=== PATIENT | male | born 1945 | race Caucasian/White ===

== ENCOUNTER → 2023-05-21 09:27 | Outpatient (CLI) | payer MEDICARE, SELFPAY ==
[2023-05-21 10:17] LABS: Appearance Urine UA CLEAR; Bilirubin Urine UA NEGATIVE (NEGATIVE); Color Urine UA YELLOW; Glucose Urine UA NEGATIVE (Negative); Ketones Urine UA NEGATIVE (NEGATIVE); Leukocyte Esterase Urine UA NEGATIVE (NEGATIVE); Nitrite Urine UA NEGATIVE (Negative); Occult Blood Urine UA TRACE-INTACT (Negative); Protein Urine UA NEGATIVE (Negative); Specific Gravity Urine UA 1.025 (1.000-1.035); Urobilinogen Urine UA 0.2 E.U./dL (0.2); pH Urine UA 5.5 (4.5-8.0)
[2023-05-21 10:24] LABS: Add Manual Diff / Slide Review NO; Basophils Absolute Auto 0 /uL (0-100); Basophils Percent Auto 0.7 % (0-2); Eosinophils Absolute Auto 200 /uL (0-450); Eosinophils Percent Auto 2.9 % (2-4); Hematocrit 42.3 % (41-53); Hemoglobin 14.2 g/dL (13.5-17.5); Lymphocytes Absolute Auto 1400 /uL (1100-4500); Lymphocytes Percent Auto 22.2 % (25-40); Mean Corpuscular HGB Conc 33.5 % (30-36); Mean Corpuscular Hemoglobin 29.6 PG (26-34); Mean Corpuscular Volume 88.3 fL (80-100); Monocytes Absolute Auto 600 /uL (0-900); Monocytes Percent Auto 9.7 % (3-14); Neutrophils Absolute Auto 4200 /uL (1500-7000); Neutrophils Percent Auto 64.5 % (50-75); Platelet Count 213 X10^3/uL (150-400); Red Blood Cell Count 4.79 X10^6/uL (4.5-5.9); Red Cell Distribution Width 13.5 % (11.6-14.8); White Blood Cell Count 6.5 X10^3/uL (4.5-11.0)
[2023-05-21 10:26] LABS: Bacteria Urine None Seen; Culture Indicated Urine Cult Not Indicated; RBC Urine 0-1/HPF (0-5/HPF); Squamous Epithelial Cell Urine None Seen (0-5/HPF); WBC Urine None Seen (0-5/HPF)
[2023-05-21 10:27] LABS: Alanine Aminotransferase 32 IU/L (<50); Albumin Globulin Ratio 1.4 (1.0-2.8); Alkaline Phosphatase 52 U/L (38-126); Aspartate Aminotransferase 27 IU/L (17-59); BUN Creatinine Ratio 19.8 (6-22); Blood Urea Nitrogen 18 mg/dL (9-20); Calcium 9.7 mg/dL (8.4-10.2); Carbon Dioxide 28 mmol/L (22-32); Chloride 105 mmol/L (98-107); Cholesterol 147 mg/dL (140-199); Creatine Kinase 109 U/L (55-170); Estimated Glomerular Filt Rate > 60 mL/min (>60); Globulin 2.8 g/dL (1.7-4.1); Glucose 112 mg/dL (80-110); HDL Cholesterol 43 mg/dL (40-60); HEMOLYSIS < 15 (0-50); LDL Cholesterol Calculated 85 mg/dL (<100); Magnesium 1.8 mg/dL (1.6-2.3); Phosphorous 3.3 mg/dL (2.3-3.7); Potassium 4.3 mmol/L (3.4-5.1); Sodium 139 mmol/L (137-145); Total Protein 6.8 g/dL (6.3-8.2); Triglycerides 97 mg/dL (35-150)
[2023-05-21 10:41] LABS: Creatinine Urine Random 133.5 mg/dL
[2023-05-21 10:46] LABS: Microalbumi Creatinin Ratio Ur 29.2 ug/mg CR (<30); Microalbumin Urine Random 3.9 mg/dL (0-1.6)
[2023-05-21 10:58] LABS: TSH w/ Reflex to FT4 1.13 uIU/mL (0.47-4.68)
[2023-05-21 12:14] LABS: Hep C Virus Ab w/Reflex Quant NEGATIVE s/c (NEGATIVE)
== END ==
PROVIDERS: PCP Family Medicine; Referring Provider Family Medicine; Visit Provider Family Medicine
DX: Z11.59 Encounter for screening for other viral diseases; I10 Essential (primary) hypertension; G47.62 Sleep related leg cramps; E78.5 Hyperlipidemia, unspecified
CPT/HCPCS: 36415; 80053; 80061; 81001; 82043; 82550; 82570; 83735; 84100; 84443; 85025; 86803

== ENCOUNTER → 2024-05-31 08:38 | Outpatient (CLI) | payer MEDICARE, SELFPAY ==
[2024-05-31 09:33] LABS: Add Manual Diff / Slide Review NO; Basophils Absolute Auto 100 /uL (0-100); Eosinophils Absolute Auto 200 /uL (0-450); Eosinophils Percent Auto 3.1 % (2-4); Hematocrit 43.2 % (41-53); Hemoglobin 14.5 g/dL (13.5-17.5); Lymphocytes Absolute Auto 1400 /uL (1100-4500); Lymphocytes Percent Auto 21.1 % (25-40); Mean Corpuscular HGB Conc 33.6 % (30-36); Mean Corpuscular Volume 89.3 fL (80-100); Monocytes Absolute Auto 600 /uL (0-900); Monocytes Percent Auto 8.6 % (3-14); Neutrophils Absolute Auto 4300 /uL (1500-7000); Neutrophils Percent Auto 66.2 % (50-75); Platelet Count 187 X10^3/uL (150-400); Red Blood Cell Count 4.84 X10^6/uL (4.5-5.9); Red Cell Distribution Width 13.4 % (11.6-14.8); White Blood Cell Count 6.5 X10^3/uL (4.5-11.0)
[2024-05-31 09:51] LABS: Alanine Aminotransferase 27 IU/L (<50); Albumin 3.9 g/dL (3.5-5.0); Albumin Globulin Ratio 1.6 (1.0-2.8); Alkaline Phosphatase 58 U/L (38-126); Aspartate Aminotransferase 28 IU/L (17-59); Bilirubin Total 1.1 mg/dL (0.2-1.3); Blood Urea Nitrogen 19 mg/dL (9-20); Calcium 9.1 mg/dL (8.4-10.2); Carbon Dioxide 26 mmol/L (22-32); Chloride 107 mmol/L (98-107); Cholesterol 165 mg/dL (140-199); Estimated Glomerular Filt Rate > 60 mL/min (>60); Globulin 2.4 g/dL (1.7-4.1); Glucose 107 mg/dL (80-110); HDL Cholesterol 47 mg/dL (40-60); HEMOLYSIS < 15 (0-50); LDL Cholesterol Calculated 101 mg/dL (<100); Potassium 4.3 mmol/L (3.4-5.1); Sodium 139 mmol/L (137-145); Total Protein 6.3 g/dL (6.3-8.2); Triglycerides 86 mg/dL (35-150)
[2024-05-31 10:08] LABS: Vitamin D 25 Hydroxy (D3) 40.9 ng/mL (30.0-100.0)
== END ==
PROVIDERS: PCP Family Medicine; Referring Provider Family Medicine; Visit Provider Family Medicine
DX: E78.5 Hyperlipidemia, unspecified (principal); Z12.5 Encounter for screening for malignant neoplasm of prostate; Z79.899 Other long term (current) drug therapy; I10 Essential (primary) hypertension; I25.10 Atherosclerotic heart disease of native coronary artery without angina pectoris; Z13.21 Encounter for screening for nutritional disorder
CPT/HCPCS: 36415; 80053; 80061; 82306; 85025; G0103

== ENCOUNTER → 2024-06-09 14:22 | Outpatient (CLI) | payer MEDICARE, SELFPAY ==
[2024-06-09 15:11] LABS: Influenza A - CEPHEID Flu A NEGATIVE (NEGATIVE); Influenza B - CEPHEID Flu B NEGATIVE (NEGATIVE); Respiratory Syncytial Virus Negative (Negative)
[2024-06-09 16:14] LABS: COVID-19 CEPHEID 4-PLEX PCR Negative (Negative)
== END ==
PROVIDERS: PCP Family Medicine; Visit Provider Student in an Organized Health Care Education/Training Program
DX: R05.1 Acute cough (principal)
CPT/HCPCS: 0241U

== ENCOUNTER → 2024-07-22 15:47 | Outpatient (CLI) | payer MEDICARE, SELFPAY ==
--- NOTE | 2024-07-22 15:48 | DI.RAD.S_ITS ---
PROCEDURE: XR CHEST 2V INDICATIONS: cough TECHNIQUE: 2 views of the chest were acquired. COMPARISON: None. FINDINGS: Surgical changes and devices: None. Lungs and pleura: Lungs are clear. No pleural effusions or pneumothorax. Mediastinum: Mediastinal contours are normal. Heart size is normal. Bones and chest wall: No suspicious bony abnormalities. Soft tissues appear unremarkable. IMPRESSION: No acute cardiopulmonary pathology. Dictated by: Gibson Tobias M.D. on 07/22/2024 at 17:48 Approved by: Gibson Tobias M.D. on 07/22/2024 at 17:48
== END ==
PROVIDERS: PCP Family Medicine; Referring Provider Family Medicine; Visit Provider Family Medicine
DX: R05.9 Cough, unspecified (principal)
CPT/HCPCS: 71046

== ENCOUNTER → 2024-09-19 07:26 | Outpatient (CLI) | payer MEDICARE, SELFPAY ==
[2024-09-19 08:50] LABS: Prostate Specific Antigen 4.59 ng/mL (0.10-4.00)
[2024-09-19 09:40] LABS: Microalbumin Urine Random 6.2 mg/dL (0-1.6)
== END ==
PROVIDERS: PCP Family Medicine; Referring Provider Family Medicine; Visit Provider Family Medicine
DX: R97.20 Elevated prostate specific antigen [PSA] (principal); I10 Essential (primary) hypertension
CPT/HCPCS: 36415; 82043; 82570; 84153

== ENCOUNTER → 2025-01-31 08:47 | Outpatient (CLI) | payer MEDICARE, SELFPAY ==
[2025-01-31 10:23] LABS: Cholesterol 142 mg/dL (140-199); HDL Cholesterol 39 mg/dL (40-60); Triglycerides 84 mg/dL (35-150)
== END ==
PROVIDERS: PCP Family Medicine; Referring Provider Family Medicine; Visit Provider Family Medicine
DX: E78.5 Hyperlipidemia, unspecified (principal)
CPT/HCPCS: 36415; 80061

== ENCOUNTER 2025-03-17 17:19 | Emergency (ER) | payer MEDICARE, SELFPAY ==
[2025-03-17 17:20] VITALS: BP 147/68; PULSE 56; RESP 16; TEMP 36.8; O2SAT 96; BMI 28.5
--- NOTE | 2025-03-17 17:27 | DI.RAD.S_ITS ---
PROCEDURE: XR RIBS LT MIN 3V W CXR1V INDICATIONS: fall TECHNIQUE: To views of the ribs were acquired, along with a single view chest. COMPARISON: None. FINDINGS: Surgical changes and devices: None. Bones and chest wall: No fractures or dislocations. No suspicious bony lesions. Overlying soft tissues appear unremarkable. Lungs and pleura: No pleural effusions or pneumothorax. Lungs appear clear. Mediastinum: Mediastinal contours appear normal. Heart size is enlarged. IMPRESSION: No displaced left rib fractures or pneumothorax. Dictated by: Gibson Tobias M.D. on 03/17/2025 at 18:24 Approved by: Gibson Tobias M.D. on 03/17/2025 at 18:24
--- NOTE | 2025-03-17 17:47 | ED.FALL ---
HPI - Fall <Joselin Lim PA-C - Last Filed: 03/17/25 19:13> General Chief Complaint: Fall Stated Complaint: Fall, pain in ribs Time Seen by Provider: 03/17/25 17:25 History of Present Illness HPI Narrative: Mr. Collazo is a very pleasant 80-year-old male with a past medical history of CAD, HTN, HLD, not on blood thinners who presents to emergency department for left-sided rib pain after fall that occurred around noon. Patient states he was working on his deck when a backboard gave out causing him to fall off the deck onto the hard ground. He landed on the left side of his ribcage. States that his head may have hit the ground but he did not have any head pain at the time of the fall or now. No loss of consciousness or blood thinners. Patient states that he had some immediate pain on the lateral left ribcage that extends onto the left chest wall as well, he hoped that it would go away on its own however after over 5 hours the pain persisted so he came to the ER. He is taken Tylenol and he does not want anything else for pain. Pain is exacerbated by taking deep breath. Pain is alleviated by sitting still. Denies any headache, neck pain, back pain, abdominal pain, upper extremity pain or lower extremity pain. No open wounds. Related Data Home Medications ?Medication ?Instructions ?Recorded ?Confirmed cholecalciferol (vitamin D3) 50 50 mcg PO DAILY 12/29/23 03/15/25 mcg (2,000 unit) capsule Previous Rx's ?Medication ?Instructions ?Recorded sildenafil 50 mg tablet 50 mg PO DAILY PRN sexual activity 09/19/23 #30 tabs amlodipine 5 mg tablet 5 mg PO BID #90 tabs 07/15/24 atorvastatin 40 mg tablet 40 mg PO DAILY #90 tabs 07/15/24 clindamycin phosphate 1 % topical 1 applic topical DAILY #75 mL 10/10/24 gel, once daily irbesartan 300 mg tablet 300 mg PO DAILY #90 tabs 11/01/24 metoprolol succinate 50 mg 50 mg PO DAILY #90 tabs 01/30/25 tablet,extended release 24 hr Allergies Allergy/AdvReac Type Severity Reaction Status Date / Time No Known Drug Allergies Allergy Verified 03/15/25 15:56 Review of Systems <Joselin Lim PA-C - Last Filed: 03/17/25 19:13> Review of Systems ROS Unobtainable: All systems reviewed & are unremarkable except as noted in HPI and below Patient History <Joselin Lim PA-C - Last Filed: 03/17/25 19:13> Medical History Actinic keratosis Surgical History History of fasciotomy (~2015) History of umbilical hernia repair (~2004) Social History marital status: unmarried,living together number of children: 2 household members: significant other lives independently: Yes 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 Well-developed patient, in no acute distress. HEAD: Atraumatic. Normocephalic. No scalp tenderness EYES: PERRL. Extraocular motions intact. No scleral icterus. No injection or drainage. ENT: Clear ear canals and pearly cohen TMs bilaterally, no hemotympanum or garay sign. Nose without bleeding, purulent drainage. Throat without erythema, tonsillar hypertrophy or exudate. Airway patent. NECK: Trachea midline. Cervical ROM intact. No midline cervical tenderness. CARDIOVASCULAR: Regular rate and rhythm. RESPIRATORY: ?Tenderness to palpation of left lateral ribcage in the mid axillary line, there is ecchymosis in his area. He is also tender on the left sternal border and below the left breast. Nonlabored respirations. ?Speaking in clear, full sentences. ?Clear to auscultation. Breath sounds equal bilaterally. No wheezes, rales, or rhonchi. ? GASTROINTESTINAL: Abdomen soft, non-tender, nondistended. No abdominal ecchymoses. EXTREMITIES: No upper or lower extremity tenderness to palpation or edema. BACK: No midline spinal tenderness or paraspinal tenderness. No bruising on the back. NEURO: AOx3. ?Clear speech. ?Moves all 4 extremities appropriately. SKIN: Left lateral ribcage breathing, otherwise skin is warm, dry, no rashes or wounds. Initial Vital Signs Initial Vital Signs: Vital Signs Temperature 98.3 F 03/17/25 17:20 Pulse Rate 56 L 03/17/25 17:20 Respiratory Rate 16 03/17/25 17:20 Blood Pressure 147/68 H 03/17/25 17:20 Pulse Oximetry 96 03/17/25 17:20 Oxygen Delivery Method Room Air 03/17/25 17:20 <Diann Shepard MD - Last Filed: 03/17/25 23:28> Initial Vital Signs Initial Vital Signs: Vital Signs Temperature 98.3 F 03/17/25 17:20 Pulse Rate 56 L 03/17/25 17:20 Respiratory Rate 16 03/17/25 17:20 Blood Pressure 147/68 H 03/17/25 17:20 Pulse Oximetry 96 03/17/25 17:20 Oxygen Delivery Method Room Air 03/17/25 17:20 Course <Joselin Lim PA-C - Last Filed: 03/17/25 19:13> Orders Ordered: ED Orders 03/17/25 17:27 XR ribs LT min 3V w CXR1V Stat Vital Signs Vital signs: Vital Signs - 8 hr 03/17/25 17:20 03/17/25 19:10 Temperature 98.3 F Pulse Rate 56 L 51 L Respiratory Rate 16 16 Blood Pressure 147/68 H 149/70 H Pulse Oximetry 96 98 Oxygen Delivery Method Room Air Room Air <Diann Shepard MD - Last Filed: 03/17/25 23:28> Orders Ordered: ED Orders 03/17/25 17:27 XR ribs LT min 3V w CXR1V Stat Vital Signs Vital signs: Vital Signs - 8 hr 03/17/25 17:20 03/17/25 19:10 Temperature 98.3 F Pulse Rate 56 L 51 L Respiratory Rate 16 16 Blood Pressure 147/68 H 149/70 H Pulse Oximetry 96 98 Oxygen Delivery Method Room Air Room Air MDM - Fall <MEGAN Cuevas Last Filed: 03/17/25 19:13> Medical Records Attestation: I reviewed the patient's medical records. MDM Narrative Medical decision making narrative: 80-year-old male with a past medical history of CAD, HTN, HLD, not on blood thinners who presents to emergency department for left-sided rib pain after fall that occurred around noon. Differential diagnosis includes but isn't limited to rib fracture, rib contusion, pneumothorax, closed head injury, etc. On exam patient is in no acute distress, nontoxic-appearing, all vital signs within normal limits. He is focal tenderness to palpation of the left lateral ribs where there is ecchymosis, he is also tender below the left breast extending to the left of the sternum. Lungs are clear auscultation bilaterally. He reports no significant head strike, headache or neck pain. No blood thinners loss of consciousness. No pain with any of his extremities. No abdominal tenderness or bruising. X-ray chest and left ribs obtained in triage. Actually declines any additional pain medication, states he took Tylenol prior to arrival. X-ray reveals no displaced left rib fractures or pneumothorax. Discussed supportive care with the patient including pain control, incentive spirometry. He again declines any pain control for home. Respiratory therapy came and met with the patient and reviewed incentive spirometry. We also discussed strict ER return precautions. Patient verbalized understanding of all information is agreeable with the plan, eager for discharge home, ambulatory and stable for discharge at this time. Discharge Plan Departure Patient Disposition: Home Clinical Impression: Rib pain on left side Fall Qualifiers: Encounter type: initial encounter Qualified Code(s): W19.XXXA - Unspecified fall, initial encounter Instructions: DI for Rib Fracture Activity Restrictions/Additional Instructions: Dear Mr. Collazo, Thank you for coming to the emergency department. Today you were evaluated for left rib pain after a fall. X-ray of your chest and ribs did not reveal any displaced rib fractures however as we discussed x-rays can miss subtle fractures so we are treating you as having broken left ribs. The most important part of healing is pain control and prevention of pneumonia. Please use the incentive spirometer that you were provided with. Please use ibuprofen and Tylenol for pain relief in addition to applying ice to the area of bruising. It is very important that you return to the emergency department immediately if you develop any new or worsening symptoms, abdominal pain or bruising, difficulty breathing, fevers or other concerns. Please follow up with your primary care doctor within the next 2-3 days for ER follow-up. (If you do not have a PCP you can call [phone]. ?to schedule an appointment with an [facility] Primary Care Provider) IF YOU DEVELOP ANY NEW OR WORSENING SYMPTOMS, RETURN TO THE ER! Please read the attached instructions, they highlight more specific treatments and interventions for you at home. Thank you for letting me participate in your care, Joselin Lim PA-C Prescriptions: No Action cholecalciferol (vitamin D3) 50 mcg (2,000 unit) capsule 50 mcg PO DAILY amlodipine 5 mg tablet 5 mg PO BID Qty: 90 3RF atorvastatin 40 mg tablet 40 mg PO DAILY Qty: 90 3RF sildenafil 50 mg tablet 50 mg PO DAILY PRN (Reason: sexual activity) Qty: 30 2RF Rx Instructions: administer 30 minutes to 4 hours before activity clindamycin phosphate 1 % gel, once daily 1 applic topical DAILY Qty: 75 0RF irbesartan 300 mg tablet 300 mg PO DAILY Qty: 90 3RF metoprolol succinate 50 mg tablet extended release 24 hr 50 mg PO DAILY Qty: 90 3RF Referrals: Chano Juárez MD [Primary Care Provider, Family Practice] Stand Alone Forms: Patient Portal/API ED Sign-out <Diann Shepard MD - Last Filed: 03/17/25 23:28> [facility]: I was immediately available in the department for consultation throughout this patient's visit. Diann Shepard MD
[2025-03-17 19:10] VITALS: BP 149/70; PULSE 51; RESP 16; O2SAT 98
== END 2025-03-17 19:10 | disposition home or self-care (01) ==
PROVIDERS: Emergency Provider Physician Assistant; PCP Family Medicine
DX: R07.81 Pleurodynia (principal); W18.30XA Fall on same level, unspecified, initial encounter
CPT/HCPCS: 71101; 99281; 99283

== ENCOUNTER → 2025-04-12 10:25 | Outpatient (CLI) | payer MEDICARE, SELFPAY ==
--- NOTE | 2025-04-12 10:26 | DI.ECHO.S_ITS ---
[facility] : : [id number] : [place] : : [id number] : : Phone: [phone] Echocardiogram Report + + :Name: ZE OLIVER Study Date: 04/12/2025 Height: 72 in : :Hospital ReadingLocation: Weight: 210 lb : : Gender: Male BSA: 2.2 m2 : :: 1945 Age: 80 yrs BP: 159/83 mmHg: :Reason For Study: HYPERTENSION : :Ordering Physician: URIEL, : :CHANO Stock Performed By: Chano Hobson : :Referring: CHANO TREVINO : + + Interpretation Summary 1) Mildly increased left ventricular thickness (concentric) with normal size, normal wall motion, and normal systolic function (EF 60-65%). 2) Normal right ventricular size and function. 3) The left atrium is severely dilated 4) There is mild to moderate mitral regurgitation. 5) Compared to the Echo done 02/24/2021, mild to moderate mitral regurgitation is present on this study. Procedure: A two-dimensional transthoracic echocardiogram with color flow and Doppler was performed. The study quality was technically good. Comparison is made with the echocardiogram of 03/06/2021. The patient was in normal sinus rhythm during the exam. Left Ventricle: The left ventricle is normal in size. Left ventricular wall thickness is mildly increased. There is no ventricular septal defect visualized. The ejection fraction is estimated to be 60-65%. There are no focal wall motion abnormalities. Diastolic parameters suggest probable normal left ventricular diastolic function and normal filling pressures. Right Ventricle: The right ventricle is normal in size and function. Atria: The left atrium is severely dilated. The right atrium is mildly dilated. The discontinuity of the interatrial septum is suggestive of an atrial septal defect. Mitral Valve: The mitral valve leaflets appear normal. There is no evidence of stenosis, fluttering, or prolapse. There is mild to moderate mitral regurgitation. Aortic Valve: The aortic valve is trileaflet. The aortic valve opens well. There is no aortic valve stenosis. No aortic regurgitation is present. Tricuspid Valve: The tricuspid valve leaflets are thin and pliable. There is mild tricuspid regurgitation. The right ventricular systolic pressure is estimated to be at least 35 mmHg based on an estimated right atrial pressure of 3 mm Hg. Pulmonic Valve: The pulmonic valve is not well seen, but is grossly normal. There is trace pulmonic regurgitation. Great Vessels: The aortic root is normal size. The ascending aorta is at the upper limits of normal in size. The pulmonary artery is not well visualized, but is probably normal size. The IVC is of normal diameter and collapses greater than 50% with a sniff. This suggests a low right atrial pressure of 3 mm Hg. Pericardium/ Pleura There is no pericardial effusion. There is no pleural effusion. MMode/2D Measurements & Calculations LVIDd: 4.5 cm LVOT diam: 2.1 cm LVIDs: 2.4 cm Ao root diam: 3.4 cm FS: 45.9 % asc Aorta Diam: 3.7 cm EPSS: 0.67 cm IVSd: 1.1 cm LVPWd: 1.1 cm LV nguyễn. diameter/BSA (cm/m^2): 2.1 LV sys. diameter/BSA (cm/m^2): 1.1 LA A2 area: 30.1 cm2 RA long axis: 6.1 cm LA A4 area: 29.0 cm2 RA area: 20.8 cm2 LA length (vol): 6.5 cm RA vol: 60.9 ml LA vol: 113.6 ml RA : 28.0 ml/m2 LA vol index: 52.2 ml/m2 IVC diam: 1.4 cm RVD1 (basal): 3.9 cm RVD2 (mid): 2.4 cm TAPSE: 2.6 cm Doppler Measurements & Calculations Ao V2 max: 158.5 cm/sec LVOT Max Yoandy: 116.9 cm/sec Ao V2 mean: 103.7 cm/sec LV V1 max P.5 mmHg Ao max P.0 mmHg LV V1 VTI: 25.6 cm Ao mean P.2 mmHg WHITNEY(I,D): 2.9 cm2 Ao V2 VTI: 30.8 cm WHITNEY(V,D): 2.6 cm2 sev ratio: 0.83 WHITNEY indexed to BSA (cm^2/m^2): 1.3 MV E max yoandy: 107.0 cm/sec TR max yoandy: 281.6 cm/sec MV A max yoandy: 43.9 cm/sec TR max P.7 mmHg MV E/A: 2.4 PA V2 max: 122.9 cm/sec Med Peak E' Yoandy: 6.4 cm/sec PA V2 mean: 83.8 cm/sec E/E' med: 16.8 PA mean P.1 mmHg Lat Peak E' Yoandy: 8.1 cm/sec PA pr(Accel): 48.2 mmHg E/E' lat: 13.2 E/e' average: 15.0 MV dec time: 0.17 sec SV(LVOT): 89.2 ml Reading Physician:12:47 PM
== END ==
LOC: ECHO 10:25
PROVIDERS: PCP Family Medicine; Referring Provider Family Medicine; Visit Provider Family Medicine
DX: I10 Essential (primary) hypertension (principal); I08.1 Rheumatic disorders of both mitral and tricuspid valves
CPT/HCPCS: 93306

== ENCOUNTER → 2025-05-11 15:56 | Outpatient (CLI) | payer MEDICARE, SELFPAY ==
--- NOTE | 2025-05-11 15:57 | DI.MRI.S_ITS ---
PROCEDURE: MR PELVIC PROSTATE PROTOCOL INDICATIONS: 80 y/o M w/ elevated PSA, please eval TECHNIQUE: Coronal HASTE, axial T1 FSE with fat saturation, 3-plane nonbreath-hold T2 FSE. After the administration of contrast, dynamic axial, delayed axial and coronal VIBE or 2-D FLASH with fat saturation through the pelvis. Diffusion weighted imaging and ADC was performed. COMPARISON: None. FINDINGS: Image quality: Diffusion weighted and dynamic contrast enhanced images are diagnostic. Prostate: Gland size is 6.1 x 4.6 x 5 cm; ellipsoid gland volume is 73 mL. PSA density is 0.063 Transitional zone heterogenous nodules are present, either well encapsulated or mostly encapsulated, compatible with PI-RADS 1 or 2 likely BPH nodules. Mildly T2 hypointense heterogenous striated appearance of the peripheral zone is commonly seen with current or prior prostatitis, PI-RADS 2. These findings can obscure small cancers. Genitourinary system: Trabeculated urinary bladder is usually from chronic obstruction. Seminal vesicles appear clear Bowel and peritoneum: No bowel obstruction. Colonic diverticula. No ascites Nodes and vessels: No aneurysmal artery identified. No enlarged lymph nodes by size criteria in the pelvis Soft tissues: No significant pelvic wall abnormality Bones: No aggressive appearing osseous finding. IMPRESSION: No high probability findings to suggest clinically significant prostate adenocarcinoma by MRI. Consider continued PSA and possible MRI surveillance if necessary. No pelvic lymphadenopathy by size criteria. No aggressive osseous abnormality. Dictated by: Wale Mary M.D. on 05/12/2025 at 8:28 Approved by: Wale Mary M.D. on 05/12/2025 at 8:33
== END ==
LOC: MRI 15:57
PROVIDERS: PCP Family Medicine; Referring Provider Urology; Visit Provider Urology
DX: R97.20 Elevated prostate specific antigen [PSA] (principal); N32.89 Other specified disorders of bladder
CPT/HCPCS: 72197; A9579